=== PATIENT | male | born 2005 | race Two or more races ===

== ENCOUNTER 2025-06-08 09:24 | Emergency (ER) | payer MEDICAID, OTHER ==
[~2025-06-08] VITALS: Ht 180.3 cm; Wt 92.0 kg
[2025-06-08 09:31] VITALS: BP 150/97; PULSE 71; RESP 18; TEMP 97.7; O2SAT 98
--- NOTE | 2025-06-08 09:50 | ED.PDOC ---
Back pain HPI HPI Comments A 19 Y/O WITH C/C OF MID BACK PAIN FOR THE PAST 3X DAYS. PATIENT REPORTS HISTORY OF CHRONIC BACK PAIN DUE TO HISTORY OF SPINAL CORD LESION. STATES ON HAVING SURGERY FOR IT PERFORMED 2X YEARS AGO AND HAS BEEN TAKING PERCOCET AND MUSCLE RELAXER MEDICATION EVERYDAY. DENIES ANY RECENT INJURIES. DENIES HAVING ANY FURTHER ACUTE ASSOCIATED SYMPTOMS. NO OTHER SYMPTOMS REPORTED AT THIS TIME OF CARE. PT HAS SCHEDULED TO SEE HIS PCP 10:30AM TODAY. Chief Complaint: Back Pain Time Seen by MD: 09:30 Primary Care Provider: KEVIN Reviewed Notes: Nurses Notes, Medications, Allergies Allergies: Coded Allergies: NO KNOWN ALLERGIES (Unverified , 06/08/25) Information Source: Patient Mode of Arrival: Ambulatory Timing: Hours Duration: Since onset Location of Back pain: (B) Thoracic Severity: Moderate Prehospital treatment: Treatment Quality: Aching, Cramping Onset: Spontaneous History of: Chronic Back Pain Modifying Factors: Movement Associated signs and symptoms: None Past Medical History Past Medical History (Other): CHRONIC MIDDLE BACK PAIN Surgical History (Other): MIDDLE BACK SURGERY Social History Smoker: Non-Smoker Lives In: Home Constitutional: denies: chills, diaphoresis, fatigue, fever, malaise, sweats, weakness, others EENTM: denies: blurred vision, double vision, ear bleeding, ear discharge, ear drainage, ear pain, ear ringing, eye pain, eye redness, hearing loss, mouth pain, mouth swelling, nasal discharge, nose bleeding, nose congestion, nose pain, photophobia, tearing, throat pain, throat swelling, voice changes, others Respiratory: denies: cough, hemoptysis, orthopnea, SOB at rest, shortness of breath, SOB with excertion, stridor, wheezing, others Cardiovascular: denies: chest pain, dizzy spells, diaphoresis, Dyspnea on exertion, edema, irregular heart beat, left arm pain, lightheadedness, palpitations, PND, syncope, others Gastrointestinal: denies: abdomen distended, abdominal pain, blood streaked bowels, constipated, diarrhea, dysphagia, difficulty swallowing, hematemesis, melena, nausea, poor appetite, poor fluid intake, rectal bleeding, rectal pain, vomiting, others Genitourinary: denies: burning, dysuria, flank pain, frequency, hematuria, incontinence, penile discharge, penile sore, pain, testicle pain, testicle swelling, urgency, others Neurological: denies: dizziness, fainting, headache, left sided numbness, left sided weakness, numbness, paresthesia, pre-existing deficit, right sided numbness, right sided weakness, seizure, speech problems, tingling, tremors, weakness, others Musculoskeletal: reports: back pain, muscle pain; denies: gout, joint pain, joint swelling, muscle stiffness, neck pain, others Integumetry: denies: bruises, change in color, change in hair/nails, dryness, laceration, lesions, lumps, rash, wounds, others Allergic/Immunocompromised: denies: Difficulty Healing, Frequent Infections, Hives, Itching, others Hematologic/Lymphatic: denies: anemia, blood clots, easy bleeding, easy bruising, swollen glands, others Endocrine: denies: excessive hunger, excessive sweating, excessive thirst, excessive urination, flushing, intolerance to cold, intolerance to heat, unexplained weight gain, unexplained weight loss, others Psychiatric: denies: anxiety, bipolar disorder, depression, hopeless, panic disorder, schizophrenia, sleepless, suicidal, others All Other Systems: Reviewed and Negative Physical Exam General Appearance: No Apparent Distress, Normal HEENT: Normal ENT Inspection, PERRL/EOMI, Pharynx Normal, TMs Normal Neck: Full Range of Motion, Non-Tender, Normal, Normal Inspection Respiratory: Chest Non-Tender, Lungs Clear, No Accessory Muscle Use, No Respiratory Distress, Normal Breath Sounds Cardiovascular: No Edema, No JVD, No Murmur, No Gallop, Normal Peripheral Pulses, Regular Rate/Rhythm Breast Exam: Deferred Gastrointestinal: No Organomegaly, Non Tender, No Pulsatile Mass, Normal Bowel Sounds, Soft Genitalia: Deferred Pelvic: Deferred Rectal: Deferred Extremities: No calf tenderness, Normal capillary refill, Normal inspection, Normal range of motion, Non-tender, No pedal edema Musculoskeletal : Location: Bilateral Extremity Location: Back Apperance: Tenderness (MUSCLE SPASM ON MIDDLE BACK, NO BONY TENDERNESS AND SWELLING, NO DEFORMITY. ) Neurologic: Alert, code official II-XII nml as Tested, No Motor Deficits, Normal Affect, Normal Mood, No Sensory Deficits Cerebellar Function: Normal Reflexes: Normal Skin: Dry, Normal Color, Warm Peripheral Pulses: 2+ carotid (R), 2+ carotid (L), 2+ dorsalis pedis (R), 2+ dorsalis pedis (L) Lymphatic: No Adenopathy Was a procedure done? Was a procedure done?: No Back Pain Differential Dx Differential Diagnosis: Fracture, Musculoskeletal Pain, Pyelonephritis, Urinary Tract Infection, Urolithiasis X-Ray, Labs, Meds, VS Vital Signs Date Time Temp Pulse Resp B/P (MAP) Pulse Ox O2 Delivery O2 Flow Rate FiO2 06/08/25 09:31 97.7 71 18 150/97 (114) 98 97.7 [facility] [address] [facility] [address] Ph: [phone] DIAGNOSTIC IMAGING Diagnostic Imaging Report : [id number] Signed PATIENT: ANAHI POOLE ACCT: [id number] UNIT: [id number] : 2005 LOC: ER ROOM / BED: / AGE / SEX: 19 / M ADM STATUS: REG ER SERVICE ORDERING PHYSICIAN: GORGE KRAMER PROCEDURE(s): THOSP - SPINE THORACIC 2VIEW REASON: PAIN, NO INJURY, HX OF SURGERY X 2 YEARS AGO. ORDER NUMBER(s): [id number], ACCESSION NUMBER(s): [id number] INDICATION: PAIN, NO INJURY, HX OF SURGERY X 2 YEARS AGO. COMPARISON: None TECHNIQUE:2 views of the thoracic spine were obtained. FINDINGS: The thoracic vertebral alignment is normal. The intervertebral disc spaces are well-maintained. No significant facet arthropathy is noted. No acute fracture, vertebral compression deformity or aggressive osseous lesions. The imaged thorax and abdomen are grossly unremarkable. IMPRESSION: No acute fracture. ATED BY: ERIN HARDIN MD DICTATED DATE/TIME: 06/08/25 1020 SIGNED BY: ERIN HARDIN MD SIGNED DATE/TIME: 06/08/25 1020 CC: X-Ray, Labs, Meds, VS Comment XRAY WAS NORMAL, NO SIGNS OF FRACTURE, DISLOCATION, OR SOFT TISSUE DAMAGE IN AGREEMENT WITH FINDING DX - CHRONIC PAIN SYNDROME RX - NONE Time of 1ST Reevaluation: 10:00 Reevaluation 1ST: Improved Patient Education/Counseling: Diagnosis, Treatment, Need For Follow Up Family Education/Counseling: Diagnosis, Treatment, No Family Present Medical Screening: No EMC Exist At This Time SEPSIS Sepsis Screen Date sepsis recognized/suspect: Jun 08, 2025 Time Sepsis recognized/suspect: 930 Recent Procedure: No On Antibiotic Therapy: No Respiratory Rate >20: No Heart Rate >90: No Temp<36 C (96.8 F) or >38.3 C: No SBP <90 or MAP <65 mmHG: No New Acute Mental Status Change: No Is the patient on CPAP, BIPAP,: No Physician Orders Spine Thoracic 2view (06/08/25 09:37) Vital Signs Date Time Temp Pulse Resp B/P (MAP) Pulse Ox O2 Delivery O2 Flow Rate FiO2 06/08/25 09:31 97.7 71 18 150/97 (114) 98 97.7 Departure 1 Departure Time of Disposition: 10:46 Impression: Primary Impression: Exacerbation of chronic back pain Disposition: 01 HOME / SELF CARE / HOMELESS Condition: Stable Additional Instructions: F/U WITH PCP IN 24-48 HOURS. TAKE ALREADY PRESCRIBED PAIN MEDICATION AT HOME. Discharged With: Self Critical Care Note Critical Care Time?: No Stability Stability form required: No Heart Score Heart Score: Heart Score Response (Comments) Value History N/A 0 EKG N/A 0 Age N/A 0 Risk Factors N/A 0 Troponin N/A 0 Total 0 I personally scribed for GORGE KRAMER ([email or web address]) on 06/08/25 at 09:50. Electronically submitted by Edward Michel ([email or web address]). I personally scribed for GORGE KRAMER ([email or web address]) on 06/08/25 at 10:33. Electronically submitted by Edward Michel ([email or web address]). GORGE KRAMER Jun 08, 2025 09:50
--- NOTE | 2025-06-08 10:23 | DVH ---
INDICATION: PAIN, NO INJURY, HX OF SURGERY X 2 YEARS AGO. COMPARISON: None TECHNIQUE:2 views of the thoracic spine were obtained. FINDINGS: The thoracic vertebral alignment is normal. The intervertebral disc spaces are well-maintained. No significant facet arthropathy is noted. No acute fracture, vertebral compression deformity or aggressive osseous lesions. The imaged thorax and abdomen are grossly unremarkable. IMPRESSION: No acute fracture.
== END 2025-06-08 10:48 | disposition home or self-care (01) ==
LOC: ER 09:24
DX: G89.4 Chronic pain syndrome (principal); M54.6 Pain in thoracic spine
CPT/HCPCS: 72070